=== PATIENT | male | born 1955 | race Caucasian/White ===

== ENCOUNTER 2019-08-06 13:32 | Day surgery (SDC) | payer MEDICARE, OTHER ==
[~2019-08-06] VITALS: Ht 182.9 cm; Wt 85.7 kg
[~2019-08-06 13:32] MED LIST: Augmentin 500-1 EACH; LEVFLO500; Naprosyn500 MG
--- NOTE | 2019-08-06 14:27 | NUR ---
08/06/19 1427 Nellie Redman 1412 AWARE OF OCCASIONAL PVC'S. VSS
== END 2019-08-06 15:11 | disposition home or self-care (01) ==
LOC: ORSCSDS 13:32
PROVIDERS: Surgery
PROC: 0DBP8ZX Excision of Rectum, Via Natural or Artificial Opening Endoscopic, Diagnostic (ICD-10-PCS; principal; 2019-08-06 14:45)
DX: Z12.11 Encounter for screening for malignant neoplasm of colon (principal); K62.1 Rectal polyp; E78.5 Hyperlipidemia, unspecified; Z87.891 Personal history of nicotine dependence
CPT/HCPCS: 88305; J2704; J7120

== ENCOUNTER 2019-12-24 10:52 | Observation (INO) | payer MEDICARE, OTHER ==
[~2019-12-24] VITALS: Ht 182.9 cm; Wt 88.3 kg
[2019-12-24 11:29] LABS: BASOPHILS ABSOLUTE AUTO 0.03 K/mm3 (0.00-0.23); BASOPHILS PERCENT AUTO 0 % (0-2); EOSINOPHILS ABSOLUTE AUTO 0.26 K/mm3 (0.00-0.68); EOSINOPHILS PERCENT AUTO 3 % (0-6); Hematocrit 46.5 % (37.0-53.0); Hemoglobin 15.6 g/dL (13.5-17.5); IMMATURE GRAN ABSOLUTE AUTO 0.05 K/mm3 (0.00-0.10); IMMATURE GRAN PERCENT AUTO 1 % (0-1); LYMPHOCYTES ABSOLUTE AUTO 1.63 K/mm3 (0.84-5.20); LYMPHOCYTES PERCENT AUTO 20 % (21-46); MONOCYTES ABSOLUTE AUTO 0.46 K/mm3 (0.16-1.47); MONOCYTES PERCENT AUTO 6 % (4-13); Mean Corpuscular HGB 30.4 pg (26.0-34.0); Mean Corpuscular HGB Conc 33.5 g/dL (31.5-36.5); Mean Corpuscular Volume 91 fL (80-100); Mean Platelet Volume 11.6 fL (9.1-12.4); NEUTROPHILS ABSOLUTE AUTO 5.62 K/mm3 (1.96-9.15); NEUTROPHILS PERCENT AUTO 70 % (41-73); Platelet Count 205 K/mm3 (150-400); RDW Standard Deviation 40.4 fL (35.1-46.3); Red Blood Cell Count 5.13 M/mm3 (4.30-5.90); White Blood Cell Count 8.05 K/mm3 (4.00-11.30)
[2019-12-24 11:43] LABS: Anion Gap 7 mmol/L (6-16); Blood Urea Nitrogen 15 mg/dL (8-24); Bun/Creatinine Ratio 14.4 (12.0-20.0); CO2, Blood 25 mmol/L (21-32); Chloride, Blood 109 mmol/L (98-108); Creatinine, Blood 1.04 mg/dL (0.60-1.20); Glomerular Filtration Rate >60 (60-); Glucose, Blood 101 mg/dL (70-99); Potassium, Blood 4.2 mmol/L (3.5-5.5); Sodium, Blood 141 mmol/L (136-145); Troponin I <0.015 ng/mL (0.000-0.040)
[2019-12-24 11:44] LABS: Alanine Aminotransfer (ALT/SGP 23 U/L (12-78); Albumin, Blood 3.9 g/dL (3.4-5.0); Albumin/Globulin Ratio 1.1 (0.8-1.8); Alk Phos 80 U/L (50-136); Aspartate Aminotrans (AST/SGOT 24 U/L (12-37); Bilirubin, Total 0.5 mg/dL (0.1-1.0); Calcium, Blood 9.1 mg/dL (8.5-10.1); Globulin, Blood 3.4 g/dL (2.2-4.0); Total Protein, Blood 7.3 g/dL (6.4-8.2)
--- NOTE | 2019-12-24 15:51 | NUR ---
ECHOCARDIOGRAM COMPLETE
--- NOTE | 2019-12-24 17:05 | NUR ---
PT ARRIVAL... PT ARRIVED ON UNIT VIA [facility]. PT WAS ADMITTED FOR UNSTABLE ANGINA. PT CURRENTLY DENIES ANY CHEST PAIN/PRESSURE N/V OR SOB. PT'S VS STABLE HR IN THE 50'S-60S SB W/NON-CONDUCTED PVCS PT BECOMES SYMPTOMATIC WITH INCREASED PVCS. PT IS A&OX4 AND IND IN THE ROOM. L/S CLEAR T/O ON RA. BT PRESENT AND HYPERACTIVE ABD SOFT AND NONTENDER TO PALP. PT WAS ABLE TO SELF TRANSFER FROM [facility] TO THE BED. CALL LIGHT IN REACH WILL CONTINUE TO MONITOR.
[2019-12-24] MEDS ORDERED: Naproxen500 MG PO (17:09)
--- NOTE | 2019-12-24 19:15 | NUR ---
SHIFT SUMMARY... PT HAS DENIED CHEST PAIN SINCE ADMIT. PT'S VS HAVE BEEN STABLE EXCEPT FOR HIS HEART RATE, PT'S HEART RATE HAS DROPPED DOWN TO THE LOW 30'S DURING PT'S SLEEP, PT HAS ALSO BEEN HAVING BIGEMINAL PVCS. PT HAS DENIED ANY SYMPTOMS SINCE ADMIT. PT IS TO BE NPO AFTER MIDNIGHT FOR ANGIO IN THE AM. PT TOLD THIS RN HAD HE HAS BEEN TAKING A DIETARY SUPPLIEMENT FOR HIS DOG CALLED [employer], PT STATED THAT THIS HAS HELPED HIM FEEL BETTER AND HAS IMPROVED HIS CHRONIC PAIN THUS IMPROVING HIS QUALITY OF LIFE. PER THE PT HIS PCP IS AWARE THAT HE IS TAKING THIS SUPPLEMENT. CALL LIGHT IN REACH WILL CONTINUE TO MONITOR UNTIL REPORT IS GIVEN TO ONCOMING RN.
[2019-12-25 04:32] LABS: CHOL/HDL RATIO 3.2; Cholesterol 204 mg/dL (50-200); HDL Cholesterol 64 mg/dL (>39); LDL/HDL RATIO 1.9; Low Density Lipoprotein Chol 122 mg/dL (0-110); Triglycerides 89 mg/dL (30-160); Very Low Density Lipoprot Chol 17 mg/dL (6-32)
--- NOTE | 2019-12-25 06:24 | NUR ---
SHIFT SUMMARY PATIENT VERY PLEASENT AND COOPERATIVE THROUGHOUT THE NIGHT. PATIENT HAS SOME COMPLAINTS OF CHEST PRESSURE AND PAIN THAT HE RATED 4/10 AT THE BEGINNING OF THE SHIFT BUT HE REPORTS IT HAS IMPROVED AND IS CHEST PAIN/DISCOMFORT IS, "DOING BETTER." PATIENT APPEARED TO SLEEP WELL THROUGHOUT THE NIGHT. PATIENT HAS BEEN NPO SINCE 0000 FOR PROCEDURE TODAY. VITAL SIGNS CHARTED. WILL CONTINUE TO MONITOR PATIENT AND REPORT TO ONCOMING RN.
--- NOTE | 2019-12-25 07:45 | NUR ---
AM NOTE.... ASSUMED CARE OF PT APROX 0700. PT IS A&Ox4 AND IND IN THE ROOM. PT WAS ADMITTED FOR CHEST PAIN AND IS TO HAVE ANGIO TODAY. PT HAS BEEN IN SR/SB IN THE 40'S-60'S WITH NONPERFUSING PVCS. PT HAS BEEN NPO SINCE MIDNIGHT PER NOC RN. PT CURRENTLY DENEIS ANY CHEST PAIN/PRESSURE N/V OR SOB. PT IS ON RA WITH O2 SATS >90%. L/S CLEAR T/O DIM IN THE RIGHT BASE. BT PRESENT AND HYPERACTIVE ABD SOFT AND NONTENDER TO PALP.
[2019-12-25] MEDS ORDERED: Aspirin EC81 MG PO (13:03)
[2019-12-25] MEDS ORDERED: ATOR20 PO (13:04)
--- NOTE | 2019-12-25 14:00 | NUR ---
ASSUMED CARE: RECIEVED REPORT FROM FRANCIA CONNELL. TR BAND IN PLACE WITH 6CC REMAINING. SCANT OLD BLEEDING. NO SIGNS OF HEMATOMA. DENIES NEEDS OR CONCERNS.
--- NOTE | 2019-12-25 14:30 | NUR ---
REMOVED 2CC AIR FROM TR BAND. NO SIGN OF FURTHER BLEEDING OR BRUISING.
--- NOTE | 2019-12-25 16:36 | NUR ---
TR BAND REMOVED AND CLEAR DRESSING PLACED. NO SIGNS OF FURTHER BLEEDING OR BRUISING. INSTRUCTIONS GIVEN ABOUT FOLLOW UP APPOINTMENTS AND ZIO PATCH CARE. AMBULATORY UPON DC, ESCORTED OUT BY HOSPITAL STAFF.
== END 2019-12-25 16:43 | disposition home or self-care (01) ==
LOC: ER 10:52 → PCU 10:53
PROVIDERS: Internal Medicine Interventional Cardiology; Physician Assistant; ADMIT Internal Medicine
DX: R07.89 Other chest pain (principal); R94.39 Abnormal result of other cardiovascular function study; R61 Generalized hyperhidrosis; I49.3 Ventricular premature depolarization; E78.5 Hyperlipidemia, unspecified; R06.02 Shortness of breath; Z79.82 Long term (current) use of aspirin; Z79.899 Other long term (current) drug therapy; Z88.6 Allergy status to analgesic agent; Z88.5 Allergy status to narcotic agent
CPT/HCPCS: 36415; 71046; 76937; 80053; 80061; 84484; 85025; 85347; 85379; 90686; 93005; 93010; 93306; 93458; 99152; 99153; A9270-GY; C1769; C1894; G0008; J0461; J1644; J2250; J2405; J3010; J7030; Q9967

== ENCOUNTER → 2022-04-18 | Outpatient (CLI) | payer MEDICARE, OTHER ==
[~2022-04-18] MED LIST changes: +ATOR20 PO; +Aspirin EC81 MG PO; +Naproxen500 MG PO
[2022-04-18 09:09] LABS: BASOPHILS ABSOLUTE AUTO 0.01 K/mm3 (0.00-0.23); BASOPHILS PERCENT AUTO 0 % (0-2); EOSINOPHILS ABSOLUTE AUTO 0.08 K/mm3 (0.00-0.68); EOSINOPHILS PERCENT AUTO 2 % (0-6); Hematocrit 44.5 % (37.0-53.0); Hemoglobin 15.5 g/dL (13.5-17.5); IMMATURE GRAN ABSOLUTE AUTO 0.02 K/mm3 (0.00-0.10); IMMATURE GRAN PERCENT AUTO 1 % (0-1); LYMPHOCYTES ABSOLUTE AUTO 1.03 K/mm3 (0.84-5.20); LYMPHOCYTES PERCENT AUTO 24 % (21-46); MONOCYTES ABSOLUTE AUTO 0.55 K/mm3 (0.16-1.47); MONOCYTES PERCENT AUTO 13 % (4-13); Mean Corpuscular HGB 31.4 pg (26.0-34.0); Mean Corpuscular HGB Conc 34.8 g/dL (31.5-36.5); Mean Corpuscular Volume 90 fL (80-100); Mean Platelet Volume 10.8 fL (9.1-12.4); NEUTROPHILS ABSOLUTE AUTO 2.68 K/mm3 (1.96-9.15); NEUTROPHILS PERCENT AUTO 61 % (41-73); Platelet Count 146 K/mm3 (150-400); RDW Coefficient Variation 12.6 % (11.7-14.2); RDW Standard Deviation 41.5 fL (35.1-46.3); Red Blood Cell Count 4.94 M/mm3 (4.30-5.90); White Blood Cell Count 4.37 K/mm3 (4.00-11.30)
[2022-04-18 09:31] LABS: Albumin, Blood 3.6 g/dL (3.4-5.0); Albumin/Globulin Ratio 1.1 (0.8-1.8); Bilirubin, Total 0.5 mg/dL (0.1-1.0); Bun/Creatinine Ratio 16.6 (12.0-20.0); Calcium, Blood 8.9 mg/dL (8.5-10.1); Creatinine, Blood 1.45 mg/dL (0.60-1.20); Globulin, Blood 3.4 g/dL (2.2-4.0); Potassium, Blood 4.7 mmol/L (3.5-5.5); Thyroid Stimulating Hormone 2.183 uIU/mL (0.360-4.800)
[2022-04-18 10:45] LABS: Source, Urine Clean Catch
[2022-04-18 11:16] LABS: Bacteria Not Seen /hpf; Red Blood Cells, Urine Not Seen /hpf (0-2); Squamous Epithelial Cells Rare /hpf (Few); White Blood Cells, Urine 0-2 /hpf (0-5)
== END | disposition home or self-care (01) ==
LOC: LAB SHORT 09:03 → LAB 09:03
PROVIDERS: Chiropractor
DX: R07.9 Chest pain, unspecified (principal); R53.83 Other fatigue; R80.9 Proteinuria, unspecified
CPT/HCPCS: 80053; 81015; 84443; 84484; 85025; 85379

== ENCOUNTER 2022-08-21 07:37 | Day surgery (SDC) | payer MEDICARE, OTHER | END 2022-08-21 12:05 | disposition home or self-care (01) | DX: K42.0 Umbilical hernia with obstruction, without gangrene (principal); E78.5 Hyperlipidemia, unspecified; I12.9 Hypertensive chronic kidney disease with stage 1 through stage 4 chronic kidney disease, or unspecified chronic kidney disease; N18.9 Chronic kidney disease, unspecified; Z87.891 Personal history of nicotine dependence; Z79.899 Other long term (current) drug therapy; Z79.82 Long term (current) use of aspirin ==

== ENCOUNTER 2023-03-05 13:03 | Emergency (ER) | payer MEDICARE, OTHER ==
[~2023-03-05] VITALS: Ht 182.9 cm; Wt 85.3 kg
[2023-03-05 14:20] LABS: BASOPHILS ABSOLUTE AUTO 0.02 K/mm3 (0.00-0.23); BASOPHILS PERCENT AUTO 0 % (0-2); EOSINOPHILS ABSOLUTE AUTO 0.03 K/mm3 (0.00-0.68); EOSINOPHILS PERCENT AUTO 0 % (0-6); Hematocrit 44.4 % (37.0-53.0); Hemoglobin 15.5 g/dL (13.5-17.5); IMMATURE GRAN ABSOLUTE AUTO 0.03 K/mm3 (0.00-0.10); IMMATURE GRAN PERCENT AUTO 0 % (0-1); LYMPHOCYTES ABSOLUTE AUTO 1.27 K/mm3 (0.84-5.20); LYMPHOCYTES PERCENT AUTO 17 % (21-46); MONOCYTES ABSOLUTE AUTO 0.44 K/mm3 (0.16-1.47); MONOCYTES PERCENT AUTO 6 % (4-13); Mean Corpuscular HGB 31.3 pg (26.0-34.0); Mean Corpuscular HGB Conc 34.9 g/dL (31.5-36.5); Mean Corpuscular Volume 90 fL (80-100); Mean Platelet Volume 11.1 fL (9.1-12.4); NEUTROPHILS ABSOLUTE AUTO 5.68 K/mm3 (1.96-9.15); NEUTROPHILS PERCENT AUTO 76 % (41-73); Platelet Count 192 K/mm3 (150-400); RDW Coefficient Variation 12.2 % (11.7-14.2); RDW Standard Deviation 39.9 fL (35.1-46.3); Red Blood Cell Count 4.95 M/mm3 (4.30-5.90); White Blood Cell Count 7.47 K/mm3 (4.00-11.30)
[2023-03-05 14:25] LABS: Albumin, Blood 3.7 g/dL (3.4-5.0); Albumin/Globulin Ratio 1.2 (0.8-1.8); Bilirubin, Total 1.2 mg/dL (0.1-1.0); Bun/Creatinine Ratio 16.6 (12.0-20.0); Calcium, Blood 9.3 mg/dL (8.5-10.1); Creatinine, Blood 0.96 mg/dL (0.60-1.20); Globulin, Blood 3.2 g/dL (2.2-4.0); Total Protein, Blood 6.9 g/dL (6.4-8.2)
[2023-03-05 17:54] LABS: Magnesium, Blood 2.2 mg/dL (1.6-2.4)
[2023-03-05 17:56] LABS: Thyroid Stimulating Hormone 0.711 uIU/mL (0.360-4.800)
[2023-03-05] MEDS ORDERED: MECL25 PO (20:55)
[2023-03-05 21:22] VITALS: BP 151/97
== END 2023-03-05 21:27 | disposition home or self-care (01) ==
LOC: ER 13:03
PROVIDERS: Physician Assistant; Student in an Organized Health Care Education/Training Program
DX: R42 Dizziness and giddiness (principal); R00.1 Bradycardia, unspecified; Z79.899 Other long term (current) drug therapy; Z79.82 Long term (current) use of aspirin; Z88.5 Allergy status to narcotic agent; Z87.891 Personal history of nicotine dependence
CPT/HCPCS: 71046; 80053; 83735; 84443; 84484; 85025; 99284-25; A9270

== ENCOUNTER → 2025-07-22 | Outpatient (CLI) | payer MEDICARE, OTHER ==
[~2025-07-22] MED LIST changes: +MECL25 PO
== END ==
LOC: LAB SHORT 12:14 → LAB 12:14
DX: L82.1 Other seborrheic keratosis (principal)
CPT/HCPCS: 88305

== ENCOUNTER 2025-09-15 01:32 | Emergency (ER) | payer MEDICARE, OTHER ==
[~2025-09-15] VITALS: Ht 182.9 cm; Wt 88.5 kg
[2025-09-15 01:47] VITALS: BP 130/90
[2025-09-15] MEDS ORDERED: Proparacaine 0.5% Opth Soln 15 ML BTL LEFTEYE ONE (03:25)
[2025-09-15] MEDS ORDERED: Fluorescein Sod 1MG Opth Strips LEFTEYE ONE (03:25)
[2025-09-15] MEDS ORDERED: Erythromycin 0.5% Opth Oint 1 gm LEFTEYE ONE (03:55)
[2025-09-15] MEDS ORDERED: ERYT.5TO LEFTEYE (03:56)
== END 2025-09-15 04:28 | disposition home or self-care (01) ==
LOC: ER 01:32
DX: H57.12 Ocular pain, left eye (principal); Z88.5 Allergy status to narcotic agent; Z87.891 Personal history of nicotine dependence
CPT/HCPCS: 99283; A9270; A9270-GY